=== PATIENT | male | born 1950 | race Caucasian/White ===

== ENCOUNTER 2021-08-16 11:58 | Day surgery (SDC) | payer BC, OTHER, SELFPAY ==
[~2021-08-16] VITALS: Ht 174 cm; Wt 56.7 kg
[2021-08-16] MEDS ORDERED: CEFAZOLIN 2 GM IVPB PREMIX 50 ML IV ONE (12:53)
[2021-08-16] MEDS ORDERED: hydrALAZINE HCL 20 MG/ML VIAL IVP PRN (15:00)
[2021-08-16] MEDS ORDERED: NACL 0.9% 1,000 ML IV SCH (15:00)
[2021-08-16] MEDS ORDERED: ONDANSETRON HCL 4 MG/2 ML VIAL IVP PRN (15:00)
[2021-08-16] MEDS ORDERED: METOCLOPRAMIDE HCL 10 MG/2 ML VIAL ONE (15:05)
[2021-08-16] MEDS ORDERED: MIDAZOLAM HCL 5 MG/ML VIAL (VERSED) IV ONE (15:05)
[2021-08-16] MEDS ORDERED: NS IRRIG SOLN 1000 ML IR ONE (15:05)
[2021-08-16] MEDS ORDERED: BUPIVACAINE /PF 0.25% 30 ML VIAL INJ ONE (15:05)
[2021-08-16] MEDS ORDERED: NS 1000 ML IV.SOLN IV ONE (15:05)
[2021-08-16] MEDS ORDERED: fentaNYL CITRATE/PF 100 MCG/2 ML AMP ONE (15:05)
[2021-08-16] MEDS ORDERED: ONDANSETRON HCL 4 MG/2 ML VIAL ONE (15:05)
[2021-08-16] MEDS ORDERED: WATER FOR IRRIGATION,STERILE 1,000 ML IRRIG.SOLN IR ONE (15:05)
[2021-08-16 16:33] VITALS: BP_SYST 168
== END 2021-08-16 16:20 | disposition home or self-care (01) ==
LOC: SDS 11:58 → STU 11:59 → SDS 16:20
PROVIDERS: ATTEND Surgery
DX: R59.0 Localized enlarged lymph nodes (principal); D11.7 Benign neoplasm of other major salivary glands; I12.9 Hypertensive chronic kidney disease with stage 1 through stage 4 chronic kidney disease, or unspecified chronic kidney disease; N18.9 Chronic kidney disease, unspecified; J41.0 Simple chronic bronchitis; Z88.1 Allergy status to other antibiotic agents; Z79.899 Other long term (current) drug therapy
CPT/HCPCS: 21555; 36415; 87426; 88305; 88307; 88341; 88342; 88360; 88365; J0690; J2250; J2405; J2765; J3010; J3490; J7030; G0378